=== PATIENT | male | born 1985 | race African-American/Black ===

== ENCOUNTER 2022-02-13 20:34 | Emergency (ER) | payer SELFPAY ==
[~2022-02-13] VITALS: Ht 188 cm; Wt 79.4 kg
--- NOTE | 2022-02-13 20:52 | NUR ---
Dr max at bedside, MSE in progress.
[2022-02-13 22:04] LABS: HEMATOCRIT 40.5 % (36.7-47.1); MEAN CORPUSCULAR HEMOGLOBIN 27.4 uug (23.8-33.4); MEAN CORPUSCULAR VOLUME 81.1 fL (73.0-96.2); PLATELET COUNT (AUTO) 182 K/uL (152-348)
[2022-02-13 22:15] LABS: CARBON DIOXIDE 30 mmol/L (21-32); CHLORIDE 99 mmol/L (98-107); CREATININE 1.2 mg/dL (0.6-1.3); GLUCOSE 74 mg/dL (74-106); POTASSIUM 4.7 mmol/L (3.5-5.1); UREA NITROGEN, BLOOD 18 mg/dL (7-18)
--- NOTE | 2022-02-13 22:46 | NUR ---
Patient discharged to home in stable condition. Written and verbal after care instructions given. Patient verbalizes understanding of instructions. Stressed follow up or return to ER for worsening s/s. pt ambulated wtih steady gait. denies pain. no SOB. no chest pain. AOx4
[2022-02-14 00:14] VITALS: BP 124/74
== END 2022-02-13 22:51 | disposition home or self-care (01) ==
LOC: ER 20:38
DX: R20.0 Anesthesia of skin (principal); R07.89 Other chest pain
CPT/HCPCS: 36415; 71045; 83735; 84484; 85025; 85651; 93005; A4663